=== PATIENT | female | born 1980 | race Caucasian/White ===

== ENCOUNTER 2016-12-13 08:25 | Day surgery (SDC) | payer MEDICAID ==
[~2016-12-13 08:25] MED LIST: Bupivacaine 25%/EPINEPHrine/PF 30 ML ONE
[2016-12-13] MEDS ORDERED: Propofol 200 MG/20 ML SDV ONE ×3 (08:59→09:45)
[2016-12-13] MEDS ORDERED: Lidocaine 2% 5 ML SDV ONE ×3 (08:59→09:45)
[2016-12-13] MEDS ORDERED: Midazolam 1 MG/ML 2 ML SDV ONE ×2 (09:00→09:47)
[2016-12-13] MEDS ORDERED: fentaNYL 100 MCG/2 ML SDV ONE ×2 (09:00→09:46)
--- NOTE | 2016-12-13 09:19 | PCM.PREANE ---
Preanesthetic Assessment - Anesthesia/Transfusion/Family Hx Anesthesia History: Prior Anesthesia Reaction Family History of Anesthesia Reaction: No Transfusion History: No Prior Transfusion(s) Intubation History: Unknown - Review of Systems General: No Symptoms Pulmonary: No Symptoms Cardiovascular: No Symptoms Gastrointestinal: No Symptoms Neurological: No Symptoms Other: Reports: None - Physical Assessment O2 Sat by Pulse Oximetry: 95 Respiratory Rate: 16 Vital Signs: Last Vital Signs Temp 36.2 C 12/13/16 09:07 Pulse 72 12/13/16 09:07 Resp 16 12/13/16 09:07 BP 130/76 12/13/16 09:07 Pulse Ox 95 12/13/16 09:07 Height: 1.6 m Weight: 121.563 kg ASA Class: 2 Mental Status: Alert & Oriented x3 Airway Class: Mallampati = 2 Dentition: Reports: Normal Dentition Thyro-Mental Finger Breadths: 3 Mouth Opening Finger Breadths: 3 ROM/Head Extension: Full Lungs: Clear to Auscultation, Normal Respiratory Effort Cardiovascular: Regular Rate, Regular Rhythm - Lab Values: Laboratory Last Values Urine HCG, Qual NEGATIVE (NEGATIVE) 12/13/16 08:27 - Allergies Allergies/Adverse Reactions: Allergies Allergy/AdvReac Type Severity Reaction Status Date / Time aspirin Allergy Rash Verified 12/09/16 15:46 lithium Allergy Other Verified 12/09/16 15:46 - Blood Blood Available: No - Anesthesia Plan Pre-Op Medication Ordered: None - Acknowledgements Anesthesia Type Planned: MAC Pt an Appropriate Candidate for the Planned Anesthesia: Yes Alternatives and Risks of Anesthesia Discussed w Pt/Guardian: Yes Pt/Guardian Understands and Agrees with Anesthesia Plan: Yes PreAnesthesia Questionnaire Other HEENT History: wears glasses Cardiovascular History: Reports: Hypertension, Other (See Below) (h/o palpitations) Respiratory History: Reports: Asthma Other Respiratory History: uses rescue inhaler twice a day Gastrointestinal History: Reports: Cholelithiasis, Irritable Bowel Syndrome Other Gastrointestinal History: takes Morphine daily for bowel pain (chronic opioid user), h/o GERD 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: Psychiatric History: Reports: Anxiety, Bipolar, Depression, Panic Attack Endocrine/Metabolic History: Reports: Obesity/BMI 30+ - Past Surgical History HEENT Surgical History: Reports: Tonsillectomy GI Surgical History: Reports: Cholecystectomy, Colonoscopy, Other (See Below) Other GI Surgeries/Procedures: Laparotomy to remove adhesions due to C-Sections Female Surgical History: Reports: Section (x2) - SUBSTANCE USE Smoking Status *Q: Current Every Day Smoker Tobacco Use Within Last Twelve Months: Cigarettes Recreational Drug Use History: No - HOME MEDS Home Medications: Home Meds Albuterol [Proair HFA] 1 - 2 puff INH Q4H PRN 05/26/15 [History] Glycopyrrolate [Glycopyrrolate] 1 mg PO BID 05/26/15 [History] lamoTRIgine [Lamictal] 100 mg PO BID 05/26/15 [History] Lisinopril/Hydrochlorothiazide [Lisinopril-Hctz 20-25 mg Tab] 1 tab PO DAILY 04/26 [History] Morphine Sulfate 15 mg PO Q4H PRN MDD 4 tabs 12/09/16 [History] Morphine Sulfate [Morphine Sulfate ER] 30 mg PO BID 12/09/16 [History] Pantoprazole Sodium 40 mg PO DAILY 12/09/16 [History] - CURRENT (IN HOUSE) MEDS Current Meds: Current Medications Hydrocodone Bitart/Acetaminophen ([place] 325-5 Mg) 1 tab PO Q4H PRN PRN Reason: Pain Bupivacaine HCl/Epinephrine Bitart (Marc[place] 0.25%/Epinephrine 1:200,000) 10 ml INJECT ONETIME ONE Stop: 12/13/16 11:01 Cefazolin Sodium/Dextrose 2 gm (/ Premix) 50 mls @ 100 mls/hr IV ONETIME ONE Stop: 12/13/16 11:29 Lactated Ringer's (Ringers, Lactated) 1,000 mls @ 125 mls/hr IV ASDIRECTED ELISHA Last Admin: 12/13/16 09:09 Dose: 125 mls/hr Discontinued Medications Fentanyl (Sublimaze) Confirm Administered Dose 100 mcg .ROUTE .STK-MED ONE Stop: 12/13/16 09:01 Bupivacaine HCl/Epinephrine Bitart (Sensorc Mpf 0.25%-Epi 1:[id number]) Confirm Administered Dose 30 mls @ as directed .ROUTE .STK-MED ONE Stop: 12/13/16 07:19 Lidocaine (Xylocaine-Mpf 2%) Confirm Administered Dose 10 ml .ROUTE .STK-MED ONE Stop: 12/13/16 09:00 Midazolam HCl (Versed 1 Mg/Ml) Confirm Administered Dose 2 mg .ROUTE .STK-MED ONE Stop: 12/13/16 09:01 Propofol (Diprivan 20 Ml) Confirm Administered Dose 400 mg .ROUTE .STK-MED ONE Stop: 12/13/16 09:00
[2016-12-13] MEDS ORDERED: Ondansetron 4 MG/2 ML SDV ONE (09:45)
[2016-12-13] MEDS ORDERED: Lactated Ringers 1,000 ML IV SCH (10:00)
[2016-12-13] MEDS ORDERED: fentaNYL 100 MCG/2 ML SDV IVPUSH PRN (10:31)
[2016-12-13] MEDS ORDERED: Acetaminophen/HYDROcodone 325-5 MG Tab PO PRN (11:00)
[2016-12-13] MEDS ORDERED: Bupivacaine 0.25%/EPINEPHrine 1:200,000 10 ML SDV INJECT ONE (11:00)
[2016-12-13] MEDS ORDERED: ceFAZolin 2 GM in Premix Bag 1 BAG IV ONE (11:00)
[2016-12-13 12:03] VITALS: BP 93/66
--- NOTE | 2016-12-13 13:40 | PCM.OPNOTE ---
- General Post-Op/Procedure Note Date of Surgery/Procedure: 12/13/16 Operative Procedure(s): right carpal tunnel release Pre Op Diagnosis: right carpal tunnel Anesthesia Technique: Local, MAC Primary Surgeon: Kerry Perry Goat Farmer: Yuki Sam Complications: None Condition: Good Free Text/Narrative:: Intake & Output 12/12/16 12/13/16 12/13/16 23:59 07:59 15:59 Intake Total [address] Shell for post op pain medication and OK with NOrco 5/325 1-2 po q 6 hours prn pain in addition to her pain medication regimen - PAIN CONTRACT
--- NOTE | 2016-12-13 20:31 | OR ---
SURGEON: AGUSTO SIMMONS MD DATE OF PROCEDURE: 12/13/2016 PREOPERATIVE DIAGNOSIS: Right carpal tunnel syndrome. POSTOPERATIVE DIAGNOSIS: Right carpal tunnel syndrome. PROCEDURE PERFORMED: Right carpal tunnel release. LOADING UNIT OPERATOR SEATING: BIRD Mott. INDICATIONS: Ms. Angeles is a 36-year-old female, seen today in evaluation for a right carpal tunnel syndrome. Risks and benefits of carpal tunnel release were discussed with her, and she would like to proceed. Risks were including, but not limited to bleeding, infection, damage to underlying or overlying structures, possible need for future interventions, and possible scarring. PROCEDURE IN DETAIL: After informed consent was obtained and placed on the chart, the patient was brought to the operating theater in a supine position. After adequate general and local MAC anesthetic was obtained, the area was prepped and draped, and a time-out was completed to confirm side and site. The tourniquet was insufflated to 200 mmHg. Attention was then paid to dissection over the transverse carpal ligament using a 15-blade through the skin and subcutaneous tissues. Under direct visualization, the ligament was breached, and dissection was carried distally and proximally until complete release of the ligament under direct visualization. Once adequately released, the area was irrigated, and a 5-0 nylon stitch was used to close in a horizontal mattress fashion. WOUND CLOSURE: The wound was dressed with Xeroform, fluffs, a Kerlix gauze dressing, and a 2- inch Shaji wrap. COUNT RESULTS: All counts and needles were correct at the end of the case. FOLLOWUP INSTRUCTIONS: The patient will see us in 10 to 14 days or sooner with any problems, questions, or concerns at the left carpal tunnel surgery for suture removal. She was given a prescription for pain control. HEGGTHE / MODL /[id number]
== END 2016-12-13 11:40 | disposition home or self-care (01) ==
LOC: MW.SDS 08:25
PROVIDERS: ATTEND Plastic Surgery
DX: G56.01 Carpal tunnel syndrome, right upper limb (principal); I10 Essential (primary) hypertension; J45.909 Unspecified asthma, uncomplicated; K58.9 Irritable bowel syndrome, unspecified; F41.9 Anxiety disorder, unspecified; F31.9 Bipolar disorder, unspecified; F17.210 Nicotine dependence, cigarettes, uncomplicated; Z88.6 Allergy status to analgesic agent; Z88.8 Allergy status to other drugs, medicaments and biological substances; Z90.49 Acquired absence of other specified parts of digestive tract; Z90.89 Acquired absence of other organs; Z98.890 Other specified postprocedural states; Z79.899 Other long term (current) drug therapy
CPT/HCPCS: 64721; 81025; J2250; J2405; J3010; J7120; 01810; J2704

== ENCOUNTER 2016-12-27 08:24 | Day surgery (SDC) | payer MEDICAID ==
[~2016-12-27 08:24] MED LIST changes: +Bupivacaine 0.25% 10 ML SDV INJECT ONE; -Bupivacaine 25%/EPINEPHrine/PF 30 ML ONE; +Lactated Ringers 1,000 ML IV SCH; +ceFAZolin 2 GM in Premix Bag 1 BAG IV ONE
[2016-12-27] MEDS ORDERED: Midazolam 1 MG/ML 2 ML SDV ONE (08:27)
[2016-12-27] MEDS ORDERED: Propofol 200 MG/20 ML SDV ONE ×2 (08:27→09:16)
[2016-12-27] MEDS ORDERED: fentaNYL 100 MCG/2 ML SDV ONE (08:27)
[2016-12-27] MEDS ORDERED: Bupivacaine 25%/EPINEPHrine/PF 0 ML ONE (08:45)
[2016-12-27] MEDS ORDERED: Bupivacaine 0.25% 10 ML SDV ONE (08:54)
--- NOTE | 2016-12-27 09:12 | PCM.PREANE ---
Preanesthetic Assessment - Anesthesia/Transfusion/Family Hx Anesthesia History: Prior Anesthesia Without Reaction Family History of Anesthesia Reaction: No Transfusion History: Prior Transfusion Reaction Intubation History: Unknown - Review of Systems General: No Symptoms Pulmonary: No Symptoms Cardiovascular: No Symptoms Gastrointestinal: No Symptoms Neurological: No Symptoms Other: Reports: None - Physical Assessment O2 Sat by Pulse Oximetry: 96 Respiratory Rate: 16 Vital Signs: Last Vital Signs Temp 36.2 C 12/27/16 08:47 Pulse 72 12/27/16 08:47 Resp 16 12/27/16 08:47 BP 114/66 12/27/16 08:47 Pulse Ox 96 12/27/16 08:47 Height: 1.6 m Weight: 102.058 kg ASA Class: 2 Mental Status: Alert & Oriented x3 Airway Class: Mallampati = 2 Dentition: Reports: Normal Dentition Thyro-Mental Finger Breadths: 3 Mouth Opening Finger Breadths: 3 ROM/Head Extension: Full Lungs: Clear to Auscultation, Normal Respiratory Effort Cardiovascular: Regular Rate, Regular Rhythm - Lab Values: Laboratory Last Values Urine HCG, Qual NEGATIVE (NEGATIVE) 12/27/16 08:27 - Allergies Allergies/Adverse Reactions: Allergies Allergy/AdvReac Type Severity Reaction Status Date / Time aspirin Allergy Rash Verified 12/09/16 15:46 lithium Allergy Cannot Verified 12/24/16 11:24 Remember - Blood Blood Available: No - Anesthesia Plan Pre-Op Medication Ordered: None - Acknowledgements Anesthesia Type Planned: MAC Pt an Appropriate Candidate for the Planned Anesthesia: Yes Alternatives and Risks of Anesthesia Discussed w Pt/Guardian: Yes Pt/Guardian Understands and Agrees with Anesthesia Plan: Yes PreAnesthesia Questionnaire HEENT History: Reports: Other (See Below) Other HEENT History: wears glasses Cardiovascular History: Reports: Hypertension, Other (See Below) Respiratory History: Reports: Asthma Other Respiratory History: uses rescue inhaler twice a day Gastrointestinal History: Reports: Cholelithiasis, Irritable Bowel Syndrome Other Gastrointestinal History: takes Morphine daily for bowel pain (chronic opioid user), h/o GERD Genitourinary History: Reports: None 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: Psychiatric History: Reports: Anxiety, Bipolar, Depression, Panic Attack Endocrine/Metabolic History: Reports: Obesity/BMI 30+ - Past Surgical History Head Surgeries/Procedures: Reports: None HEENT Surgical History: Reports: Tonsillectomy GI Surgical History: Reports: Cholecystectomy, Colonoscopy, Other (See Below) Other GI Surgeries/Procedures: Laparotomy to remove adhesions due to C-Sections Female Surgical History: Reports: Section Musculoskeletal Surgical History: Reports: Carpal Tunnel (right CTR 3 weeks ago) - SUBSTANCE USE Smoking Status *Q: Current Every Day Smoker (1 ppd) Tobacco Use Within Last Twelve Months: Cigarettes Recreational Drug Use History: No - HOME MEDS Home Medications: Home Meds Albuterol [Proair HFA] 1 - 2 puff INH Q4H PRN 05/26/15 [History] Glycopyrrolate 1 mg PO BID 05/26/15 [History] lamoTRIgine [Lamictal] 100 mg PO BID 05/26/15 [History] Lisinopril/Hydrochlorothiazide [Lisinopril-Hctz 20-25 mg Tab] 1 tab PO DAILY 04/26 [History] Morphine Sulfate 15 mg PO Q4H PRN MDD 4 tabs 12/09/16 [History] Morphine Sulfate [Morphine Sulfate ER] 30 mg PO BID 12/09/16 [History] Acetaminophen/HYDROcodone [[place] 325-5 MG] 1 tab PO Q4H PRN #30 tablet 12/13/16 [Rx] Budesonide/Formoterol Fumarate [Symbicort 80-4.5 Mcg Inhaler] 2 puff INH BID [History] - CURRENT (IN HOUSE) MEDS Current Meds: Current Medications Lactated Ringer's (Ringers, Lactated) 1,000 mls @ 125 mls/hr IV ASDIRECTED ELISHA Last Admin: 12/27/16 08:48 Dose: 125 mls/hr Discontinued Medications Bupivacaine HCl (Sensorcaine-Mpf 0.25%) 10 ml INJECT ONETIME ONE Stop: 12/27/16 08:01 Bupivacaine HCl (Sensorcaine-Mpf 0.25%) Confirm Administered Dose 10 ml .ROUTE .STK-MED ONE Stop: 12/27/16 08:55 Fentanyl (Sublimaze) Confirm Administered Dose 100 mcg .ROUTE .STK-MED ONE Stop: 12/27/16 08:28 Cefazolin Sodium/Dextrose 2 gm (/ Premix) 50 mls @ 100 mls/hr IV ONETIME ONE Stop: 12/27/16 08:29 Bupivacaine HCl/Epinephrine Bitart (Sensorc Mpf 0.25%-Epi 1:[id number]) Confirm Administered Dose 30 mls @ as directed .ROUTE .STK-MED ONE Stop: 12/27/16 08:46 Midazolam HCl (Versed 1 Mg/Ml) Confirm Administered Dose 2 mg .ROUTE .STK-MED ONE Stop: 12/27/16 08:28 Propofol (Diprivan 20 Ml) Confirm Administered Dose 200 mg .ROUTE .STK-MED ONE Stop: 12/27/16 08:28
[2016-12-27] MEDS ORDERED: ceFAZolin 1 GM Vial ONE (09:16)
[2016-12-27] MEDS ORDERED: Sodium Chloride 0.9% 20 ML ONE (09:16)
--- NOTE | 2016-12-27 13:25 | PCM.OPNOTE ---
- General Post-Op/Procedure Note Date of Surgery/Procedure: 12/27/16 Operative Procedure(s): left carpal tunnel release Pre Op Diagnosis: left carpal tunnel syndrome Post-Op Diagnosis: Same Anesthesia Technique: Local, MAC Primary Surgeon: Kerry Perry Internal Grinder: Yuki Sam Complications: None Condition: Good Free Text/Narrative:: Intake & Output 12/26/16 12/27/16 12/27/16 23:59 07:59 15:59 Intake Total 850 Balance 850
[2016-12-27 13:52] VITALS: BP 109/60
--- NOTE | 2017-01-02 18:04 | OR ---
SURGEON: AGUSTO SIMMONS MD DATE OF PROCEDURE: 12/27/2016 PREOPERATIVE DIAGNOSIS: Left carpal tunnel syndrome. POSTOPERATIVE DIAGNOSIS: Left carpal tunnel syndrome. PROCEDURE: Left carpal tunnel release. SWIMMING POOL MAINTENANCE: Yuki Sam. ANESTHESIA: Local MAC. INDICATIONS: Ms. Angeles is a 36-year-old female seen today in evaluation for left carpal tunnel syndrome. She has previously had release on the other side. Risks and benefits of release were discussed with her and she was in agreement to proceed. Risks were including, but not limited to, bleeding, infection, damage to underlying or overlying structures, possible need for future interventions and possible scarring. PROCEDURE IN DETAIL: After informed consent was obtained and placed on the chart, the patient was brought to the operating theater and laid in the supine position. After adequate local MAC anesthetic was obtained, the area was prepped draped and a time-out was completed to confirm side and site. Local anesthesia was infiltrated into the area. The arm was exsanguinated and the tourniquet was insufflated to 200 mmHg. Attention was then paid to dissection over the transverse carpal ligament which was done using a #15 blade through the skin and Littler scissors distally and proximally until complete release under direct visualization. Once adequately released, the area was irrigated and the skin was closed using 5-0 nylon stitch in a horizontal mattress fashion. The wound was dressed with Xeroform fluffs and a Kerlix gauze dressing. Tourniquet time was 4 minutes. FOLLOWUP INSTRUCTIONS: The patient will see us in clinic in 10 to 14 days or sooner if any problems, questions, or concerns. DANAE / IZZY /[id number]
== END 2016-12-27 13:36 | disposition home or self-care (01) ==
LOC: MW.SDS 08:24
PROVIDERS: ATTEND Plastic Surgery
DX: G56.02 Carpal tunnel syndrome, left upper limb (principal); J45.909 Unspecified asthma, uncomplicated; I10 Essential (primary) hypertension; K21.9 Gastro-esophageal reflux disease without esophagitis; K58.9 Irritable bowel syndrome, unspecified; F41.0 Panic disorder [episodic paroxysmal anxiety]; F17.210 Nicotine dependence, cigarettes, uncomplicated; E66.9 Obesity, unspecified; F31.9 Bipolar disorder, unspecified; Z88.6 Allergy status to analgesic agent; Z88.8 Allergy status to other drugs, medicaments and biological substances; Z79.891 Long term (current) use of opiate analgesic; Z79.899 Other long term (current) drug therapy; Z90.49 Acquired absence of other specified parts of digestive tract; Z90.89 Acquired absence of other organs; Z98.890 Other specified postprocedural states; Z68.39 Body mass index [BMI] 39.0-39.9, adult
CPT/HCPCS: 64721; 81025; J0690; J2250; J3010; J7120; 01810; J2704

== ENCOUNTER 2018-12-02 10:17 | Day surgery (SDC) | payer SELFPAY ==
[~2018-12-02 10:17] MED LIST changes: -Bupivacaine 0.25% 10 ML SDV INJECT ONE; +Ondansetron 4 MG/2 ML SDV ONE; +Propofol 200 MG/20 ML SDV ONE; +Sodium Chloride 0.9% 10 ML SDV IV PRN; +Sodium Chloride 0.9% 10 ML Syringe FLUSH PRN; +Sodium Chloride 0.9% 2.5 ML Syringe FLUSH PRN; -ceFAZolin 2 GM in Premix Bag 1 BAG IV ONE; +fentaNYL 100 MCG/2 ML SDV ONE
--- NOTE | 2018-12-02 11:02 | PCM.PREANE ---
Preanesthetic Assessment - Anesthesia/Transfusion/Family Hx Anesthesia History: Prior Anesthesia Reaction Family History of Anesthesia Reaction: No Transfusion History: No Prior Transfusion(s) Intubation History: Unknown - Review of Systems General: No Symptoms Pulmonary: No Symptoms Cardiovascular: No Symptoms Gastrointestinal: Abdominal Pain, Diarrhea Neurological: No Symptoms Other: Reports: None - Physical Assessment Vital Signs: Last Vital Signs Temp 36.6 C 12/02/18 10:50 Pulse 74 12/02/18 10:50 Resp 16 12/02/18 10:50 BP 109/74 12/02/18 10:50 Pulse Ox 94 L 12/02/18 10:50 Height: 5 ft 4 in Weight: 101.605 kg ASA Class: 2 Mental Status: Alert & Oriented x3 Airway Class: Mallampati = 2 Dentition: Reports: Normal Dentition Thyro-Mental Finger Breadths: 3 Mouth Opening Finger Breadths: 3 ROM/Head Extension: Full Lungs: Clear to Auscultation, Normal Respiratory Effort Cardiovascular: Regular Rate, Regular Rhythm - Lab Values: Laboratory Last Values Urine HCG, Qual NEGATIVE (NEGATIVE) 12/02/18 10:34 - Allergies Allergies/Adverse Reactions: Allergies Allergy/AdvReac Type Severity Reaction Status Date / Time aspirin Allergy Rash Verified 11/27/18 11:13 lithium Allergy Cannot Verified 11/27/18 11:13 Remember - Blood Blood Available: No - Anesthesia Plan Pre-Op Medication Ordered: None - Acknowledgements Anesthesia Type Planned: MAC Pt an Appropriate Candidate for the Planned Anesthesia: Yes Alternatives and Risks of Anesthesia Discussed w Pt/Guardian: Yes Pt/Guardian Understands and Agrees with Anesthesia Plan: Yes PreAnesthesia Questionnaire HEENT History: Reports: Other (See Below) Other HEENT History: wears glasses/contacts Cardiovascular History: Reports: Hypertension Other Cardiovascular History: has not take antihypertensives for several months - she monitors her blood pressure Respiratory History: Reports: Asthma Other Respiratory History: uses rescue inhaler twice a day Gastrointestinal History: Reports: Chronic Diarrhea, Colon Polyp, Irritable Bowel Syndrome, Other (See Below) Other Gastrointestinal History: some heartburn- does not take any medication Genitourinary History: Reports: None 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: Musculoskeletal History: Reports: Fracture Other Musculoskeletal History: hx of fx toe Psychiatric History: Reports: Depression Endocrine/Metabolic History: Reports: Obesity/BMI 30+ - Past Surgical History HEENT Surgical History: Reports: Tonsillectomy GI Surgical History: Reports: Cholecystectomy, Colonoscopy ( 5 years ago found a polyp), Other (See Below) Other GI Surgeries/Procedures: Exploratory Laparotomy for abdominal adhesions Female Surgical History: Reports: Section Musculoskeletal Surgical History: Reports: Carpal Tunnel - SUBSTANCE USE Smoking Status *Q: Current Every Day Smoker (1ppd) Tobacco Use Within Last Twelve Months: Cigarettes Recreational Drug Use History: No - HOME MEDS Home Medications: Home Meds Albuterol [Proair HFA] 1 - 2 puff INH Q4H PRN 05/26/15 [History] lamoTRIgine [Lamictal] 100 mg PO BID 05/26/15 [History] Lisinopril/Hydrochlorothiazide [Lisinopril-Hctz 20-25 mg Tab] 1 tab PO DAILY 04/26 [History] Morphine Sulfate 15 mg PO Q4H PRN MDD 4 tabs 12/09/16 [History] Morphine Sulfate [Morphine Sulfate ER] 30 mg PO BID 12/09/16 [History] Fluticasone Propion/Salmeterol [Fluticasone-Salmeterol 250-50] 1 puff INH BID [History] - CURRENT (IN HOUSE) MEDS Current Meds: Current Medications Lactated Ringer's (Ringers, Lactated) 1,000 mls @ 125 mls/hr IV ASDIRECTED ELISHA Last Admin: 12/02/18 10:50 Dose: 125 mls/hr Sodium Chloride (Saline Flush) 10 ml FLUSH ASDIRECTED PRN PRN Reason: Keep Vein Open Sodium Chloride (Saline Flush) 2.5 ml FLUSH ASDIRECTED PRN PRN Reason: Keep Vein Open Sodium Chloride (Saline Flush) 10 ml FLUSH ASDIRECTED PRN PRN Reason: Keep Vein Open Sodium Chloride (Saline Flush) 2.5 ml FLUSH ASDIRECTED PRN PRN Reason: Keep Vein Open Sodium Chloride (Normal Saline) 10 ml IV ASDIRECTED PRN PRN Reason: IV Use Discontinued Medications Fentanyl (Sublimaze) Confirm Administered Dose 100 mcg .ROUTE .STK-MED ONE Stop: 12/02/18 09:00 Ondansetron HCl (Zofran) Confirm Administered Dose 4 mg .ROUTE .STK-MED ONE Stop: 12/02/18 08:59 Propofol (Diprivan 20 Ml) Confirm Administered Dose 400 mg .ROUTE .[facility] ONE Stop: 12/02/18 09:00
[2018-12-02 12:38] VITALS: BP 116/77; PULSE 69
--- NOTE | 2018-12-02 12:46 | PCM.POSTAN ---
POST ANESTHESIA ASSESSMENT - MENTAL STATUS Mental Status: Alert, Oriented - VITAL SIGNS Vital Signs: Last Vital Signs Temp 36.2 C 12/02/18 12:25 Pulse 69 12/02/18 12:25 Resp 16 12/02/18 12:25 BP 116/77 12/02/18 12:25 Pulse Ox 97 12/02/18 12:25 - RESPIRATORY Respiratory Status: Respiratory Rate WNL, Airway Patent, O2 Saturation Stable - CARDIOVASCULAR CV Status: Pulse Rate WNL, Blood Pressure Stable - GASTROINTESTINAL GI Status: No Symptoms - PAIN Pain Score: 0 - POST OP HYDRATION Hydration Status: Adequate & Stable - OBSERVATIONS Free Text/Narrative:: no anesthesia problems
--- NOTE | 2018-12-02 12:47 | PCM48HPAN ---
Post Anesthesia Note - EVALUATION WITHIN 48HRS OF ANESTHETIC Vital Signs in Normal Range: Yes Patient Participated in Evaluation: Yes Respiratory Function Stable: Yes Airway Patent: Yes Cardiovascular Function Stable: Yes Hydration Status Stable: Yes Pain Control Satisfactory: Yes Nausea and Vomiting Control Satisfactory: Yes Mental Status Recovered: Yes Vital Signs: Last Vital Signs Temp 36.2 C 12/02/18 12:25 Pulse 69 12/02/18 12:25 Resp 16 12/02/18 12:25 BP 116/77 12/02/18 12:25 Pulse Ox 97 12/02/18 12:25 - COMMENTS/OBSERVATIONS Free Text/Narrative:: no anesthesia problems
--- NOTE | 2018-12-02 15:12 | PCM.OPNOTE ---
- General Post-Op/Procedure Note Date of Surgery/Procedure: 12/02/18 Operative Procedure(s): Screening colonoscopy Findings: Normal colonoscopy Pre Op Diagnosis: History of rectal polyps Post-Op Diagnosis: Normal colonoscopy Anesthesia Technique: MAC Primary Surgeon: Irina Rojas Condition: Good Free Text/Narrative:: Intake & Output 12/02/18 12/02/18 12/02/18 06:59 14:59 22:59 Intake Total 350 Balance 350
--- NOTE | 2018-12-03 16:06 | OR ---
SURGEON: IRINA ROJAS MD DATE OF PROCEDURE: 12/02/2018 PREOPERATIVE DIAGNOSIS: History of colon polyps. POSTOPERATIVE DIAGNOSIS: History of colon polyps. PROCEDURE PERFORMED: Screening colonoscopy. PRIMARY SURGEON: Endoscopist, Irina Rojas MD. ANESTHESIA: MAC. INSTRUMENT USED: Olympus colonoscope. EXTENT OF EXAM: To the cecum. PREPARATION: Good. LIMITATIONS: None. INDICATIONS FOR EXAMINATION: The patient is a 38-year-old female who presents 5 years after a screening colonoscopy where she was found to have a rectal polyp. I explained the need for repeat colonoscopy. I explained the procedure, expected perioperative course, and risks including bleeding, infection, or damage to surrounding structures including perforation. The patient verbalized understanding and wishes to proceed. PROCEDURE IN DETAIL: The patient was brought into the endoscopy suite and placed in the left lateral decubitus position. A time-out was completed verifying the patient's name, age, date of , allergies, and procedure to be performed. Monitored anesthesia care was induced and continuous oxygen was provided via nasal cannula throughout the procedure. After adequate sedation was achieved, a digital rectal exam was performed. This exam was within normal limits. A well lubricated colonoscope was inserted into the rectum and advanced under direct visualization to the level of the cecum. The cecum was identified by both visual and anatomic landmarks. A photograph was taken of the cecal cap. However, I was unable to retroflex the scope within the cecum due to looping of the scope more proximally. The scope was then fully withdrawn while examining the color, texture, anatomy, and integrity of the mucosa from the cecum to the anal canal. The findings were consistent with normal colonic mucosa. The scope was brought into the rectum and retroflexed to allow visualization of the anal canal opening. This appeared normal and a photograph was taken. The scope was then straightened out and fully withdrawn. The cecum to anus time was 6 minutes. The patient tolerated the procedure well and was transferred to the PACU in stable condition. ENDOSCOPIC DIAGNOSIS: History of colon polyps, normal colonoscopy. RECOMMENDATIONS: Follow up in clinic in 5 years. BEATRIZ MAGANA /[id number]
== END 2018-12-02 12:55 | disposition home or self-care (01) ==
LOC: MW.SDS 10:17
PROVIDERS: ATTEND Surgery
DX: Z12.11 Encounter for screening for malignant neoplasm of colon (principal); K21.9 Gastro-esophageal reflux disease without esophagitis; I10 Essential (primary) hypertension; J45.909 Unspecified asthma, uncomplicated; F17.210 Nicotine dependence, cigarettes, uncomplicated; Z88.6 Allergy status to analgesic agent; Z88.8 Allergy status to other drugs, medicaments and biological substances; Z79.899 Other long term (current) drug therapy; Z86.010 Personal history of colon polyps
CPT/HCPCS: 45378; 81025; J2405; J2704; J3010; J7120